=== PATIENT | female | born 1940 | race Caucasian/White ===

== ENCOUNTER 2022-05-06 19:36 | Inpatient (IN) | payer MEDICARE, OTHER ==
[~2022-05-06] VITALS: Ht 162.6 cm; Wt 49.9 kg
--- NOTE | 2022-05-06 19:49 | NUR ---
[id number]. GEN CHEST PAIN "FEELS LIKE A MY BREAST WEIGHT 400LBS" NON RADIATING 04/04. 1 SPRAY NITRO AND ASA 325MG BY EMS. PLACED ON BED, AAOX4, BREATHING EVEN AND UNLABORED SATURATING AT 96%RA, ATTACHED TO MONITOR SHOWS NORMAL SINUS RHYTHYM, IN PAIN 01/02 PS.
--- NOTE | 2022-05-06 20:17 | NUR ---
BLOOD DRAWN AND SENT TO LAB
[2022-05-06] MEDS ORDERED: IOHEXOL-350 100 ML VIAL IV ONE (20:37)
[2022-05-06] MEDS ORDERED: IV NS 0.9% 250 ML IV ONE (20:37)
[2022-05-06] MEDS ORDERED: CT SWABBABLE VALVE TRANS SET 1 EA INFUS.SET MC ONE (20:37)
[2022-05-06 20:58] LABS: BASOPHILS # (AUTO) 0.1 K/uL (0.0-0.2); EOSINOPHILS % (AUTO) 5.6 % (0.0-6.0); HEMATOCRIT 37 % (33-45); LYMPHOCYTES # (AUTO) 2.3 K/uL (0.8-4.8); MEAN CORPUSCULAR HGB CONC 32 g/dl (31.0-36.0); MEAN CORPUSCULAR VOLUME 85 fL (82-100); MONOCYTES # (AUTO) 0.8 K/uL (0.1-1.30); NEUTROPHILS # (AUTO) 4.6 K/uL (1.8-8.9); NEUTROPHILS % (AUTO) 55.4 % (43.0-81.0); PLATELET COUNT (AUTO) 326 K/uL (150-450); RED BLOOD CELL COUNT(AUTO) 4.36 MIL/uL (4.0-5.2); WHITE BLOOD COUNT (AUTO) 8.3 K/uL (4.3-11.0)
[2022-05-06 21:23] LABS: CALCIUM, SERUM 9.4 mg/dL (8.5-10.1); CARBON DIOXIDE 28 mmol/L (21-32); CHLORIDE 106 mmol/L (98-107); GLUCOSE 94 mg/dL (74-106); SODIUM SERUM 144 mmol/L (136-145); UREA NITROGEN, BLOOD 23 mg/dL (7-18)
--- NOTE | 2022-05-06 21:45 | NUR ---
COVID SWAB COLLECTED AND SENT TO LAB.
--- NOTE | 2022-05-06 21:46 | NUR ---
PT TO CT VIA IVIS
[2022-05-06] MEDS ORDERED: Z GUARD REMEDY 4 OZ OINT TP PRN (23:30)
[2022-05-06] MEDS ORDERED: ACETAMINOPHEN 325 MG TABLET PO PRN (23:30)
[2022-05-06] MEDS ORDERED: IV 1/2NS 1000 ML 1,000 ML IV PRN (23:30)
[2022-05-06] MEDS ORDERED: NITROGLYCERIN 0.4 MG/TAB BOTTLE SL PRN (23:30)
[2022-05-06] MEDS ORDERED: MAGNESIUM HYDROXIDE 30 ML UDC PO PRN (23:30)
[2022-05-06] MEDS ORDERED: ONDANSETRON HCL/PF 4 MG/2 ML VIAL IVP PRN (23:30)
--- NOTE | 2022-05-06 23:37 | NUR ---
MAY CONTACT JUNITO HULL AT [phone] FOR UPDATE
--- NOTE | 2022-05-06 23:41 | NUR ---
TELE 328-2
[2022-05-07] VITALS: BP 139/89
--- NOTE | 2022-05-07 00:03 | NUR ---
REPORT GIVEN ROXANA RN
--- NOTE | 2022-05-07 00:19 | NUR ---
PATIENT TRANSFERRED UNDER ACLS
--- NOTE | 2022-05-07 00:41 | NUR ---
RN NOTE; RECEIVED PT FROM ER WITH IVIS IN RM 328-2,AOX2-3 ABLE TO MAKE NEEDS KNOWN,GUTIERREZ WELL ON RM AIR SATING 99%,NO SIGN SOB/DISTRESS NOTED,NO COMPLAIN FOR PAIN/DISCOMFORT AT THIS TIME.IV ACCESS ON RAC 20G NO BLEEDING NOTED,PT WAS ORIENT THE RM AND VERBALLY UNDERSTANDING,SAFETY MEASURE IN PLACE,CALL LIGHT WITHIN REACH,WILL CONTINUE TO MONITOR.
[2022-05-07] MEDS ORDERED: LORAZEPAM INJ 2 MG/ML VIAL IV ONE (03:00)
[2022-05-07] MEDS ORDERED: FLUO40CA8 PO (03:16)
[2022-05-07] MEDS ORDERED: LIDO700A30 TP (03:16)
[2022-05-07] MEDS ORDERED: AMOX500C2 PO (03:16)
[2022-05-07] MEDS ORDERED: ASPI-1169 PO (03:16)
[2022-05-07] MEDS ORDERED: PREG50CA PO (03:16)
[2022-05-07] MEDS ORDERED: PANT20TA2 PO (03:16)
[2022-05-07] MEDS ORDERED: FLUO20CA36 PO (03:16)
[2022-05-07] MEDS ORDERED: DICL25TA2 (03:16)
[2022-05-07] MEDS ORDERED: ATOR40TA PO (03:16)
--- NOTE | 2022-05-07 03:20 | NUR ---
RN NOTES; PT WAS CONFUSED AND AGITATED,TEXTED ORIANA BURNETTE D,WITH A NEW ORDER ATIVAN 1MG INJECT.
[2022-05-07 04:00] VITALS: BP 145/77
--- NOTE | 2022-05-07 06:20 | NUR ---
RN CLOSING NOTE; PPT IN BED RESTING AOX2 CONFUSED ABLE TO MAKE NEEDS KNOWN,GUTIERREZ WELL ON RM AIR SATING 100%,NO SIGN SOB/DISTRESS NOTED,NO COMPLAIN FOR PAIN/DISCOMFORT DURING SHIFT,DUE MEDS GIVEN ORDER,ALL NEEDS ATTENDED.IV ACCESS ON RAC 20G PATENT AND INTACT,PT EPISODE OF GETTING OUT OF BED,SAFETY MEASURE IN PLACE,CALL LIGHT WITHIN REACH,WILL ENDORSED TO NEXT SHIFT.
[2022-05-07 07:07] LABS: BASOPHILS # (AUTO) 0.1 K/uL (0.0-0.2); BASOPHILS % (AUTO) 0.9 % (0.0-2.0); EOSINOPHILS % (AUTO) 5.4 % (0.0-6.0); HEMATOCRIT 36 % (33-45); HEMOGLOBIN 11.7 g/dL (11.5-14.8); LYMPHOCYTES # (AUTO) 1.9 K/uL (0.8-4.8); LYMPHOCYTES % (AUTO) 23.4 % (20.0-44.0); MEAN CORPUSCULAR HGB CONC 33 g/dl (31.0-36.0); MEAN CORPUSCULAR VOLUME 85 fL (82-100); MONOCYTES # (AUTO) 0.8 K/uL (0.1-1.30); MONOCYTES % (AUTO) 9.6 % (2.0-12.0); NEUTROPHILS # (AUTO) 4.9 K/uL (1.8-8.9); NEUTROPHILS % (AUTO) 60.7 % (43.0-81.0); PLATELET COUNT (AUTO) 302 K/uL (150-450); RED BLOOD CELL COUNT(AUTO) 4.22 MIL/uL (4.0-5.2); WHITE BLOOD COUNT (AUTO) 8.1 K/uL (4.3-11.0)
--- NOTE | 2022-05-07 07:27 | NUR ---
RN NOTES; TEXTED DOC,Marissa GASTELUMABOUT VTE SCORE WAS 3,HE TEXTED BACK UPDATING RECONCILE MEDS.
--- NOTE | 2022-05-07 07:35 | NUR ---
ADVERTISEMENT DISTRIBUTOR OPENING NOTES PATIENT IN BED ALERT ORIENTED X 2, NO ACUTE DISTRESS NOTED, BREATHING UNLABORED, NO SOB NOTED. DENIED ANY PAIN. IV ACCESS PATENT AND INTACT, NO REDNESS NO SWELLING NOTED. SITTER AT BEDSIDE. SAFETY MEASURES IN PLACE, CALL LIGHT WITHIN REACH. WILL CONTINUE TO MONITOR ACCORDINGLY.
[2022-05-07 07:50] LABS: CALCIUM, SERUM 9.1 mg/dL (8.5-10.1); CREATININE 0.8 mg/dL (0.6-1.3); MAGNESIUM 1.8 mg/dL (1.8-2.4); PHOSPHORUS 3.4 mg/dL (2.5-4.9); POTASSIUM 3.6 mmol/L (3.5-5.1)
[2022-05-07 08:00] VITALS: BP 153/94
[2022-05-07] MEDS: PANTOPRAZOLE 40 MG TABLET.DR PO SCH (08:07)
[2022-05-07] MEDS ORDERED: DICL100G34 TP (08:59)
[2022-05-07] MEDS ORDERED: OLAN2.5T3 PO (09:00)
--- NOTE | 2022-05-07 10:00 | NUR ---
MS RN NOTES NOTIFIED DR DESTINEE JOSHUA REGARDING HOME MEDICATION RECONCILIATION UPDATED AND NEEDS TO BE REVIEWED, NO NEW ORDER RECEIVED AT THIS TIME
[2022-05-07] MEDS: ASPIRIN 81 MG TAB.CHEW PO SCH (10:27)
[2022-05-07] MEDS: NITROGLYCERIN 30 GM TUBE TP SCH ×2 (10:28→21:33)
--- NOTE | 2022-05-07 11:05 | NUR ---
MS RN NOTES PATIENT SEEN AND EVALUATED DR DESTINEE JOSHUA , MADE AWARE THAT PATIENT VTE SCORE IS 3, PER MD PATIENT DOESN'T NEED IT, NO NEW ORDER MADE.
[2022-05-07] MEDS: PREGABALIN 25 MG CAPSULE PO SCH ×2 (11:14→17:09)
[2022-05-07 12:00] VITALS: BP 108/57
[2022-05-07 16:00] VITALS: BP 106/60
--- NOTE | 2022-05-07 19:00 | NUR ---
HOME THEATER INSTALLER CLOSING NOTES PATIENT IN BED ALERT ORIENTED X 2, NO ACUTE DISTRESS NOTED, BREATHING UNLABORED, NO SOB NOTED. DENIED ANY PAIN. IV ACCESS PATENT AND INTACT, NO REDNESS NO SWELLING NOTED. SITTER AT BEDSIDE. SAFETY MEASURES IN PLACE, CALL LIGHT WITHIN REACH.NEEDS ATTENDED AND ANTICIPATED. WILL ENDORSE TO NIGHT NURSE FOR CONTINUITY OF CARE.
--- NOTE | 2022-05-07 19:45 | NUR ---
OIL BURNER REPAIRER OPENING NOTE RECEIVED PATIENT SLEEPING IN BED; PT ALERT AND ORIENTED X 2. NO ACUTE DISTRESS NOTED, BREATHING EVEN, AND UNLABORED, NO SOB. DENIED ANY PAIN OR DISCOMFORT AT THIS TIME. IV ACCESS TO RIGHT AC G20, PATENT AND INTACT. PT HAS SITTER AT BEDSIDE FOR SAFETY. SAFETY MEASURES IN PLACE, CALL LIGHT WITHIN REACH, SIDE RAILS UP X 2, BED LOCKED IN LOW POSITION. WILL CONTINUE TO MONITOR PT ACCORDINGLY.
[2022-05-08] MEDS: ASPIRIN 81 MG TAB.CHEW PO SCH (06:16)
[2022-05-08 07:04] LABS: ALBUMIN 2.8 g/dL (3.4-5.0); BILIRUBIN,TOTAL 0.3 mg/dL (0.2-1.0); CALCIUM, SERUM 8.8 mg/dL (8.5-10.1); CREATININE 0.8 mg/dL (0.6-1.3); MAGNESIUM 1.6 mg/dL (1.8-2.4); PHOSPHORUS 4.5 mg/dL (2.5-4.9); POTASSIUM 3.6 mmol/L (3.5-5.1); TOTAL PROTEIN, SERUM 6.2 g/dL (6.4-8.2)
--- NOTE | 2022-05-08 07:15 | NUR ---
COLD MEAT CHEF CLOSING NOTE LEFT PATIENT IN BED, SLEEPING. ALERT ORIENTED X 2, NO ACUTE DISTRESS NOTED, BREATHING UNLABORED, NO SOB NOTED. DENIED ANY PAIN. IV ACCESS PATENT AND INTACT, NO REDNESS NO SWELLING NOTED. SITTER AT BEDSIDE. SAFETY MEASURES IN PLACE, CALL LIGHT WITHIN REACH. WILL ENDORSE PT TO AM SHIFT NURSE FOR [place].
--- NOTE | 2022-05-08 07:28 | NUR ---
CRAP SHOOTER OPENING NOTE RECEIVE PT ASLEEP IN BED, EASILY AROUSED. PT A/O X2 WITH CONFUSION, REORIENTED PT NEEDED. ON RA, TOLERATING WELL. NO SOB NOTED. NOT IN ANY SIGN OF RESPIRATORY DISTRESS. ON TELE FRANKFURTER INSPECTOR WITH CURRENT READING AT SINUS RHYTHM WITH , HR 70. NO C/O CARDIAC DISTRESS VOICED OUT AT THIS TIME. IV ACCESS ON RAC G#20 INTACT AND PATENT WITH 1/2 NS INFUSING AT 50ML/HR. SAFETY MEASURES IN PLACE: BED IN LOWEST AND LOCKED POSITION, BED ALARM ON, SIDE RAILS UP X2, AND CALL LIGHT WITHIN REACH. WILL CONTINUE TO MONITOR PT.
[2022-05-08 07:51] LABS: BASOPHILS # (AUTO) 0.1 K/uL (0.0-0.2); BASOPHILS % (AUTO) 0.7 % (0.0-2.0); EOSINOPHILS % (AUTO) 5.2 % (0.0-6.0); HEMATOCRIT 32 % (33-45); HEMOGLOBIN 10.4 g/dL (11.5-14.8); MEAN CORPUSCULAR HGB CONC 33 g/dl (31.0-36.0); MEAN CORPUSCULAR VOLUME 85 fL (82-100); MONOCYTES # (AUTO) 0.9 K/uL (0.1-1.30); MONOCYTES % (AUTO) 11.6 % (2.0-12.0); NEUTROPHILS # (AUTO) 4.6 K/uL (1.8-8.9); NEUTROPHILS % (AUTO) 57.5 % (43.0-81.0); PLATELET COUNT (AUTO) 302 K/uL (150-450); RED BLOOD CELL COUNT(AUTO) 3.73 MIL/uL (4.0-5.2)
[2022-05-08] MEDS ORDERED: MAGNESIUM OXIDE 400 MG TABLET PO ONE (08:00)
[2022-05-08] MEDS: PANTOPRAZOLE 40 MG TABLET.DR PO SCH (08:08)
[2022-05-08] MEDS ORDERED: FLUOXETINE HCL 20 MG CAPSULE PO SCH (09:00)
[2022-05-08] MEDS ORDERED: Magnesium 1GM/D5W 100ML PREMIX 100 ML IV SCH (09:00)
[2022-05-08] MEDS: PREGABALIN 25 MG CAPSULE PO SCH (09:03)
[2022-05-08 09:05] VITALS: BP 111/68
[2022-05-08] MEDS: NITROGLYCERIN 30 GM TUBE TP SCH (09:05)
--- NOTE | 2022-05-08 13:25 | NUR ---
WALLPAPER INSPECTOR AND SHIPPER NOTE PT DISCHARGED TO [facility] FOR HIGH LEVEL OF CARE. PT A/O X2, ABLE TO MAKE NEEDS KNOWN. ON ROOM AIR, TOLERATING WELL WITH SPO2 AT 96%. NO SOB NOTED. NOT IN ANY SIGN OF RESPIRATORY DISTRESS. VITAL SIGNS TAKEN, STABLE, AND RECORDED. PT REFUSED BODY ASSESSMENT AND PHOTOGRAPHS OF SKIN ISSUES TO BE TAKEN. ALL BELONGINGS ACCOUNTED FOR. DISCHARGED INSTRUCTIONS AND HEALTH TEACHINGS EXPLAINED TO PT AND DAUGHTER AT BEDSIDE AND THEY VERBALIZED UNDERSTANDING. IV ACCESS IN RAC G#20 REMOVED WITH NO ACTIVE BLEEDING NOTED. DRY PRESSURE DRESSING APPLIED TO SITE. REPORT GIVEN EARLIER TO IGNACIA VICTOR OF [facility]. NAME BAND REMOVED. PT LEFT THE UNIT AT 1320 VIA GURNEY, PICKED UP BY 2 CLOTH DESIZING RANGE OPERATOR CHIEF. MD AND CHARGED NURSE AWARE OF DISCHARGED. Addendum: 05/08/22 at 1748 by KIMMIE MELO RN ADDENDUM TELE BOX WAS REMOVED BY EMORY BURRELL AND GIVEN TO SUSAN TAVAREZ.
== END 2022-05-08 13:10 | disposition short-term general hospital (02) | DRG 542 ==
LOC: ER 19:46 → TELE 23:49
PROVIDERS: ADMIT Nurse Practitioner Family; ATTEND Nurse Practitioner Acute Care
DX: M48.54XA Collapsed vertebra, not elsewhere classified, thoracic region, initial encounter for fracture (principal); G93.41 Metabolic encephalopathy; R07.89 Other chest pain; G89.29 Other chronic pain; I25.10 Atherosclerotic heart disease of native coronary artery without angina pectoris; Z86.73 Personal history of transient ischemic attack (TIA), and cerebral infarction without residual deficits; F03.90 Unspecified dementia, unspecified severity, without behavioral disturbance, psychotic disturbance, mood disturbance, and anxiety; Z87.891 Personal history of nicotine dependence; Z95.1 Presence of aortocoronary bypass graft; Z86.718 Personal history of other venous thrombosis and embolism; Z66 Do not resuscitate; R90.89 Other abnormal findings on diagnostic imaging of central nervous system; G93.89 Other specified disorders of brain; S80.01XA Contusion of right knee, initial encounter; X58.XXXA Exposure to other specified factors, initial encounter; Y93.9 Activity, unspecified; Y92.89 Other specified places as the place of occurrence of the external cause; I10 Essential (primary) hypertension; Z87.74 Personal history of (corrected) congenital malformations of heart and circulatory system
CPT/HCPCS: 36415; 70450-TC; 71045-TC; 73564-TC; 80048-TC; 80053-TC; 83735-TC; 83880; 84100-TC; 84484-TC; 85025-TC; 85730-TC; 87081-TC; 93307-TC; 93971-TC; C9803; G0378; J2060; J3490; J7050; Q9967